=== PATIENT | female | born 1985 | race African-American/Black ===

== ENCOUNTER → 2016-08-16 | Outpatient (CLI) | payer OTHER ==
--- NOTE | 2016-08-16 17:10 | Diagnostic Imaging Report ---
INDICATION: Size date discrepancy. TECHNIQUE: Multiple real-time grayscale images were obtained over the gravid uterus. COMPARISON: 07/16/2015. FINDINGS: heart rate is 138 beats per minutes. The placenta is anterior. No placenta previa. The amniotic fluid index is 9.7 cm. Biometrical measurements are as follows: Biparietal 9.01 cm, age 36 weeks 4 days. Head circumference 32.38 cm, age 36 weeks 5 days. Abdominal circumference 33.73 cm, age 37 weeks 5 days. Femur length 7.54 cm, age 38 weeks 4 days. Sonographic estimate age: 37 weeks 3 days. Current gestational age by provided OTILIA of 09/10/2016 is 37 weeks and 3 days. Sonographic estimated date of delivery: 09/03/2016. Estimated Weight: 3256 gm (+/- 475 gm). LMP percentile: 83%. heart rate: 138 beats per minute. number: 1 of 1. IMPRESSION: Live intrauterine . Dictated by: Dictated on workstation # [id number]
== END ==
LOC: RAD 16:15
PROVIDERS: ATTEND Obstetrics & Gynecology
DX: O26.843 Uterine size-date discrepancy, third trimester (principal); Z3A.37 37 weeks gestation of pregnancy
CPT/HCPCS: 76816

== ENCOUNTER 2016-08-29 03:11 | Outpatient (CLI) | payer OTHER ==
[~2016-08-29] VITALS: Ht 170.2 cm; Wt 99.4 kg
[2016-08-29 03:30] VITALS: BP 135/82
[2016-08-29 03:40] VITALS: BP 130/82
[2016-08-29 03:50] LABS: BILIRUBIN,URINE NEGATIVE (NEGATIVE); KETONES,URINE NEGATIVE (NEGATIVE); LEUKOCYTE ESTERASE ,URINE NEGATIVE (NEGATIVE); NITRITE,URINE NEGATIVE (NEGATIVE); PH,URINE 8 (5-9); PROTEIN,URINE NEGATIVE (NEGATIVE); UROBILINOGEN,URINE NORMAL (NORMAL)
[2016-08-29 03:58] LABS: WBC,URINE RARE /HPF
[2016-08-29 04:00] VITALS: BP 122/71
[2016-08-29 04:19] VITALS: BP 120/79
[2016-08-29] MEDS ORDERED: CALCIUM CARBONATE 500 MG (TUMS) TAB.CHEW ONE (04:58)
[2016-08-29] MEDS ORDERED: CALCIUM CARBONATE 500 MG (TUMS) TAB.CHEW PO ONE (05:15)
[2016-08-29] MEDS ORDERED: PREN-53 PO (05:29)
[2016-08-29] MEDS ORDERED: MAGN400C PO (05:29)
[2016-08-29] MEDS ORDERED: IRON1TAB95 PO (05:29)
[2016-08-29] MEDS ORDERED: SERT20OR PO (05:29)
[2016-08-29] MEDS ORDERED: RANI25VI2 IJ (05:29)
--- NOTE | 2016-08-29 07:50 | Diagnostic Imaging Report ---
INDICATION: Decreased variability IMPRESSION: There is a normal biophysical profile with a score of 8 out of 8. The ISMAEL is 7 cm. Dictated by: Dictated on workstation # [id number]
--- NOTE | 2016-08-30 16:17 | Physician Query-Final Dx ---
GONZALEZ ARAYA 08/30/16 1617: Clinic Account Progress/Dx Physician Query: Please give diagnosis Date of Service Aug 29, 2016 at 03:11 ANGELINE FELDMAN MD 08/31/16 1126: Clinic Account Progress/Dx DIAGNOSIS: Diagnosis Decreased movement GONZALEZ ARAYA Aug 30, 2016 16:17 ANGELINE FELDMAN MD Aug 31, 2016 11:26
== END 2016-08-29 05:42 | disposition home or self-care (01) ==
LOC: WSo 03:11 → LDRP 03:11 → WSo 05:42
PROVIDERS: ATTEND Obstetrics & Gynecology
DX: O36.8130 Decreased fetal movements, third trimester, not applicable or unspecified (principal); Z3A.38 38 weeks gestation of pregnancy
CPT/HCPCS: 76819; 81000; 87088; 99213

== ENCOUNTER 2016-09-01 04:26 | Inpatient (IN) | payer OTHER ==
[2016-09-01] VITALS (42 sets, daily range): BP systolic 111–167; BP diastolic 58–92
[~2016-09-01] VITALS: Ht 170.2 cm; Wt 99.8 kg
[~2016-09-01 04:26] MED LIST: IRON1TAB95 PO; MAGN400C PO; PREN-53 PO; RANI25VI2 IJ; SERT20OR PO
--- OUTSIDE RECORDS SUMMARY | 2016-09-01 04:34 | XMS REPORT ---
Author Author MERCEDES MCKEE Organization eClinicalWorks Address Unknown Phone Unavailable Care Team Providers Care Unit Supervisor Name Role Phone MERCEDES MCKEE CP Unavailable Allergies No Known Allergies Problems Problem Type Condition ICD-9 Code Onset Dates Condition Status Problem Unspecified symptom associated with female genital organs 625.9 Active Assessment Scanty or infrequent menstruation 626.1 Active Problem Screening for malignant neoplasm of the cervix V76.2 Active Problem Dehydration 276.51 Active Problem Screening examination for venereal disease V74.5 Active Problem Urinary tract infection, site not specified 599.0 Active Problem Scanty or infrequent menstruation 626.1 Active Problem Routine general medical examination at health care facility V70.0 Active Problem Acute sinusitis, unspecified 461.9 Active Medications No Known Medications Procedures Procedure Coding System Code Date ASSAY OF TOTAL TESTOSTERONE CPT-4 95169 Oct 25, 2014 ASSAY THYROID STIM HORMONE CPT-4 95126 Oct 25, 2014 ASSAY OF PROLACTIN CPT-4 98326 Oct 25, 2014 ASSAY OF INSULIN CPT-4 68981 Oct 25, 2014 GONADOTROPIN (FSH) CPT-4 46928 Oct 25, 2014 VENIPUNCT, ROUTINE* CPT-4 28872 Oct 25, 2014 Results Name Result Date Reference Range Unit Abnormality Flag PROLACTIN Summary Purpose eClinicalWorks Submission
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
--- OUTSIDE RECORDS SUMMARY | 2016-09-01 04:35 | XMS REPORT ---
Author Author ROXANE FUENTES Organization eClinicalWorks Address Unknown Phone Unavailable Care Team Providers Care Fringe Knotter Name Role Phone ROXANE FUENTES CP Unavailable Allergies, Adverse Reactions, Alerts Substance Reaction Event Type Hydrocodone-Acetaminophen nausea Drug Allergy Problems Problem Type Condition Code Onset Dates Condition Status Assessment Acute pelvic pain, female N94.9 Active Problem Acute pelvic pain, female N94.9 Active Medications Medication Code System Code Instructions Start Date End Date Status Dosage Metformin HCl [facility] [address]-77 1000 MG Orally Once a day Oct 31, 2014 1 tablet with meals One Daily [facility] [address] 27-0.8 MG Orally not defined Procedures Procedure Coding System Code Date Office Visit, Est Pt., Level 3 CPT-4 02698 Jan 02, 2015 Vital Signs Date/Time: Jan 02, 2015 Temperature 98.0 F Weight 212.5 lbs Height 67 in BMI 33.28 Index Blood Pressure Diastolic 65 mmHg Blood Pressure Systolic 110 mmHg Cardiac Monitoring Heart Rate 60 bpm Results No Known Results Summary Purpose eClinicalWorks Submission
--- OUTSIDE RECORDS SUMMARY | 2016-09-01 04:35 | XMS REPORT ---
Author Author ROXANE FUENTES [facility] eClinicalWorks Address Unknown Phone Unavailable Care Team Providers Care Php Mysql Developer Name Role Phone ROXANE FUENTES CP Unavailable Allergies, Adverse Reactions, Alerts Substance Reaction Event Type Hydrocodone-Acetaminophen nausea Drug Allergy Problems Problem Type Condition Code Onset Dates Condition Status Assessment Dysthymic disorder F34.1 Active Problem Acute pelvic pain, female N94.9 Active Medications Medication Code System Code Instructions Start Date End Date Status Dosage One Daily [facility] [address]86 27-0.8 MG Orally not defined Metformin HCl [facility] [address]-46 1000 MG Orally Once a day Oct 31, 2014 1 tablet with meals Fluoxetine HCl [facility] [address]-36 10 mg Orally Once a day Oct 09, 2015 1 capsule in the morning Clomid NDC 0 not defined Procedures Procedure Coding System Code Date Office Visit, Est Pt., Level 4 CPT-4 87915 Oct 09, 2015 Vital Signs Date/Time: Oct 09, 2015 Cardiac Monitoring Heart Rate 82 bpm Weight 188.7 lbs Height 67 in BMI 29.55 Index Blood Pressure Diastolic 78 mmHg Blood Pressure Systolic 119 mmHg Results No Known Results Summary Purpose eClinicalWorks Submission
--- OUTSIDE RECORDS SUMMARY | 2016-09-01 04:35 | XMS REPORT | Continuity of Care Document ---
Author Author [facility] Address Unknown Phone Unavailable Allergies Medications Problems Date Dx Coded Attending Type Code Diagnosis Diagnosed By 11/03/2007 JASON STEINBERG DO V72.31 COLLEGE OR UNIVERSITY DEPARTMENT HEAD EXAM, ROUTINE 11/03/2007 V72.31 COLLEGE OR UNIVERSITY DEPARTMENT HEAD EXAM, ROUTINE 11/03/2007 V72.31 COLLEGE OR UNIVERSITY DEPARTMENT HEAD EXAM, ROUTINE 11/03/2007 V72.31 COLLEGE OR UNIVERSITY DEPARTMENT HEAD EXAM, ROUTINE 11/03/2007 MERCEDES MCKEE APRN V72.31 COLLEGE OR UNIVERSITY DEPARTMENT HEAD EXAM, ROUTINE 11/03/2007 MERCEDES MCKEE APRN V72.31 COLLEGE OR UNIVERSITY DEPARTMENT HEAD EXAM, ROUTINE 11/03/2007 JASON STEINBERG DO V72.31 COLLEGE OR UNIVERSITY DEPARTMENT HEAD EXAM, ROUTINE 01/23/2008 JASON STEINBERG DO V25.49 SURVEILLANCE OF OTHER CONTRACEPTIVE METHOD 01/23/2008 V25.49 SURVEILLANCE OF OTHER CONTRACEPTIVE METHOD 01/23/2008 V25.49 SURVEILLANCE OF OTHER CONTRACEPTIVE METHOD 01/23/2008 V25.49 SURVEILLANCE OF OTHER CONTRACEPTIVE METHOD 01/23/2008 MERCEDES MCKEE APRN V25.49 SURVEILLANCE OF OTHER CONTRACEPTIVE METHOD 01/23/2008 MERCEDES MCKEE APRN V25.49 SURVEILLANCE OF OTHER CONTRACEPTIVE METHOD 01/23/2008 JASON STEINBERG DO V25.49 SURVEILLANCE OF OTHER CONTRACEPTIVE METHOD 02/10/2010 JASON STEINBERG DO 112.1 CANDIDIASIS OF VULVA AND VAGINA 02/10/2010 112.1 CANDIDIASIS OF VULVA AND VAGINA 02/10/2010 112.1 CANDIDIASIS OF VULVA AND VAGINA 02/10/2010 112.1 CANDIDIASIS OF VULVA AND VAGINA 02/10/2010 MERCEDES MCKEE APRN 112.1 CANDIDIASIS OF VULVA AND VAGINA 02/10/2010 MERCEDES MCKEE APRN 112.1 CANDIDIASIS OF VULVA AND VAGINA 02/10/2010 JASON STEINBERG DO 112.1 CANDIDIASIS OF VULVA AND VAGINA 12/10/2011 JASON STEINBERG DO V74.5 STD SCREEN 12/10/2011 JASON STEINBERG DO V76.2 CERVICAL CANCER SCREENING (PAP SMEAR) 12/10/2011 V74.5 STD SCREEN 12/10/2011 V76.2 CERVICAL CANCER SCREENING (PAP SMEAR) 12/10/2011 V74.5 STD SCREEN 12/10/2011 V76.2 CERVICAL CANCER SCREENING (PAP SMEAR) 12/10/2011 V74.5 STD SCREEN 12/10/2011 V76.2 CERVICAL CANCER SCREENING (PAP SMEAR) 12/10/2011 MERCEDES MCKEE APRN A V74.5 STD SCREEN 12/10/2011 RYLEEMERCEDES Carolina APRN A V76.2 CERVICAL CANCER SCREENING (PAP SMEAR) 12/10/2011 RYLEEMERCEDES MEZA APRN A V74.5 STD SCREEN 12/10/2011 RYLEEMERCEDES MEZA APRN A V76.2 CERVICAL CANCER SCREENING (PAP SMEAR) 12/10/2011 JASON STEINBERG DO V74.5 STD SCREEN 12/10/2011 JASON STEINBERG DO V76.2 CERVICAL CANCER SCREENING (PAP SMEAR) 03/17/2012 JASON STEINBERG DO V70.0 ROUTINE GENERAL MEDICAL EXAMINATION AT A HEALTH CARE FACILITY 03/17/2012 V70.0 ROUTINE GENERAL MEDICAL EXAMINATION AT A HEALTH CARE FACILITY 03/17/2012 V70.0 ROUTINE GENERAL MEDICAL EXAMINATION AT A HEALTH CARE FACILITY 03/17/2012 V70.0 ROUTINE GENERAL MEDICAL EXAMINATION AT A HEALTH CARE FACILITY 03/17/2012 MERCEDES MCKEE APRN A V70.0 ROUTINE GENERAL MEDICAL EXAMINATION AT A HEALTH CARE FACILITY 03/17/2012 MERCEDES MCKEE APRN A V70.0 ROUTINE GENERAL MEDICAL EXAMINATION AT A HEALTH CARE FACILITY 03/17/2012 JASON STEINBERG DO V70.0 ROUTINE GENERAL MEDICAL EXAMINATION AT A HEALTH CARE FACILITY 05/05/2012 V05.3 [place] DX 05/05/2012 V06.1 TDAP DX 05/05/2012 V05.3 [place] DX 05/05/2012 V06.1 TDAP DX 05/05/2012 V05.3 [place] DX 05/05/2012 V06.1 TDAP DX 05/05/2012 MERCEDES MCKEE APRN V05.3 [place] DX 05/05/2012 MERCEDES MCKEE APRN A V06.1 TDAP DX 05/05/2012 MIGUEL MCKEE APRNIDI A V05.3 [place] DX 05/05/2012 RYLEE MORALESNMIGUELMERCEDES A V06.1 TDAP DX 05/05/2012 JASON STEINBERG DO V05.3 [place] DX 05/05/2012 JASON STEINBERG DO V06.1 TDAP DX 05/17/2012 V03.1 NEED FOR PROPHYLACTIC VACCINATION WITH TYPHOID-PARATYPHOID ( TAB) VACCINE 05/17/2012 V06.4 MMR DX 05/17/2012 V03.1 NEED FOR PROPHYLACTIC VACCINATION WITH TYPHOID-PARATYPHOID ( TAB) VACCINE 05/17/2012 V06.4 MMR DX 05/17/2012 MIGUEL MCKEE APRNIDI A V03.1 NEED FOR PROPHYLACTIC VACCINATION WITH TYPHOID-PARATYPHOID (TAB) VACCINE 05/17/2012 RYLEE MORALESCaity MERCEDES A V06.4 MMR DX 05/17/2012 RYLEE MORALESCaity MERCEDES A V03.1 NEED FOR PROPHYLACTIC VACCINATION WITH TYPHOID-PARATYPHOID (TAB) VACCINE 05/17/2012 RYLEE COST ENGINEER, MERCEDES A V06.4 MMR DX 05/17/2012 JASON STEINBERG DO V03.1 NEED FOR PROPHYLACTIC VACCINATION WITH TYPHOID -PARATYPHOID (TAB) VACCINE 05/17/2012 JASON STEINBERG DO V06.4 MMR DX 07/17/2012 461.9 SINUSITIS ACUTE 07/17/2012 RYLEEMERCEDES [place] APRN A 461.9 SINUSITIS ACUTE 07/17/2012 MERCEDES MCKEE APRN A 461.9 SINUSITIS ACUTE 07/17/2012 JASON STEINBERG DO 461.9 SINUSITIS ACUTE 03/29/2013 RYLEEMERCEDES [place] APRN A 599.0 URINARY TRACT INFECTION 03/29/2013 MERCEDES MCKEE APRN A 599.0 URINARY TRACT INFECTION 03/29/2013 JASON STEINBERG DO 599.0 URINARY TRACT INFECTION 11/28/2013 RYLEEMERCEDES [place] APRN A 625.9 PELVIC PAIN 11/28/2013 MERCEDES MCKEE APRN A 626.1 SCANTY OR INFREQUENT MENSTRUATION 11/28/2013 MERCEDES MCKEE APRN A V72.62 LAB SCREENING- GENERAL PHYSICAL 11/28/2013 JASON STEINBERG DO Radha 625.9 PELVIC PAIN 11/28/2013 JASON STEINBERG DO Radha 626.1 SCANTY OR INFREQUENT MENSTRUATION 11/28/2013 JASON STEINBERG DO Radha V72.62 LAB SCREENING- GENERAL PHYSICAL 03/12/2014 JASON STEINBERG DO 276.51 DEHYDRATION 12/20/2014 MADL, ROXANE L SUEDING MACHINE TENDER Ot 723.1 01/10/2015 MADL, ROXANE L SUEDING MACHINE TENDER Ot 723.1 01/10/2015 MADL, ROXANE L SUEDING MACHINE TENDER Ot M54.2 02/24/2015 MADL, ROXANE L SUEDING MACHINE TENDER Ot N94.9 03/25/2015 MADL, ROXANE L SUEDING MACHINE TENDER Ot M54.2 CERVICALGIA 03/27/2015 MADL, ROXANE L SUEDING MACHINE TENDER Ot M54.2 CERVICALGIA 04/18/2015 MADL, ROXANE L SUEDING MACHINE TENDER Ot 723.1 04/18/2015 MADL, ROXANE L SUEDING MACHINE TENDER Ot N94.9 04/18/2015 MADL, ROXANE L SUEDING MACHINE TENDER Ot 723.1 04/18/2015 MADL, ROXANE L SUEDING MACHINE TENDER Ot N94.9 07/16/2015 MADL, ROXANE L SUEDING MACHINE TENDER Ot 723.1 CERVICALGIA 07/16/2015 MADL, ROXANE L SUEDING MACHINE TENDER Ot N94.9 UNSP COND ASSOC W FEMALE GENITAL ORGANS 07/16/2015 RAULITO GODDARD DO Ot N97.9 FEMALE INFERTILITY, UNSPECIFIED 07/18/2015 RAULITO GODDARD DO Ot N83.9 NONINFLAMMATORY DISORD OF OVARY, FALLOP 07/18/2015 RAULITO GODDARD DO Ot R79.89 OTHER SPECIFIED ABNORMAL FINDINGS OF BLO Procedures Code [place] [address] ROUTINE VENIPUNCTURE 11/28/2013 14357 GC/CHLAM PROBE (STATE) 11/28/2013 77613 TEST, URINE (IN-HOUSE) 11/28/2013 81899 UA W/ CULTURE IF INDICATED 11/28/2013 00719 TRICHOMONAS (IN-HOUSE) 11/28/2013 [id number] GFR CALC (RESULT ONLY) 11/28/2013 79296 CMP 11/28/2013 53957 LIPID PANEL 11/28 93711 CBC 11/28/2013 07572 TSH 11/29/2013 03479 CULTURE UROGENITAL 12/01/2013 94211 CULTURE URINE 08/2014 84663 UA W/ CULTURE IF INDICATED 03/12/2014 Results Encounters ACCT No. Visit Date/Time Discharge Status Pt. Type Provider Facility Loc./Unit Complaint [id number] 03/12/2014 14:33:00 03/12/2014 23: 59:59 CLS Outpatient JASON STEINBERG DO [id number] 11/28/2013 08:50:00 11/28/2013 23: 59:59 CLS Outpatient MERCEDES MCKEE APRN [id number] 03/29/2013 08:56:00 03/29/2013 23: 59:59 CLS Outpatient MERCEDES MCKEE APRN [id number] 05/17/2012 08:16:00 05/17/2012 23: 59:59 CLS Outpatient [id number] 05/05/2012 13:48:00 05/05/2012 23: 59:59 CLS Outpatient [id number] 03/17/2012 15:26:00 03/17/2012 23: 59:59 CLS Outpatient JASON STEINBERG DO [id number] 07/17/2012 14:11:00 Document Registration [id number] 04/13/2012 12:31:48 RECURRING
--- OUTSIDE RECORDS SUMMARY | 2016-09-01 04:35 | XMS REPORT ---
Author Author ROXANE FUENTES Organization eClinicalWorks Address Unknown Phone Unavailable Care Team Providers Care Millwork Estimator Name Role Phone ROXANE FUENTES CP Unavailable Allergies, Adverse Reactions, Alerts Substance Reaction Event Type Hydrocodone-Acetaminophen nausea Drug Allergy Problems Problem Type Condition Code Onset Dates Condition Status Assessment Low back pain M54.5 Active Problem Unspecified symptom associated with female genital organs 625.9 Active Assessment Neck pain on right side M54.2 Active Problem Screening for malignant neoplasm of [...] Date End Date Status Dosage Metformin HCl [facility] [address]-92 1000 MG Orally Once a day Oct 31, 2014 1 tablet with meals One Daily [facility] [address] 27-0.8 MG Orally not defined Procedures Procedure Coding System Code Date Office Visit, Est Pt., Level 3 CPT-4 60716 Dec 10, 2014 Vital Signs Date/Time: Dec 10, 2014 Temperature 98.7 F Weight 207.4 lbs Height 67 in BMI 32.48 Index Blood Pressure Diastolic 80 mmHg Blood Pressure Systolic 122 mmHg Cardiac Monitoring Heart Rate 80 bpm Results No Known Results Summary Purpose eClinicalWorks Submission
--- OUTSIDE RECORDS SUMMARY | 2016-09-01 04:35 | XMS REPORT ---
Author Author JASON STEINBERG [facility] eClinicalWorks Address Unknown Phone Unavailable Care Team Providers Care Aircraft Structural Fitter Name Role Phone JASON STEINBERG CP Unavailable Allergies No Known Allergies Problems Problem Type Condition ICD-9 Code Onset Dates Condition Status Problem Unspecified symptom associated with female genital organs 625.9 Active Problem Screening for malignant neoplasm of [...] Date End Date Status Dosage Metformin HCl [facility] [address]-87 1000 MG Orally Once a day Oct 31, 2014 1 tablet with meals Results No Known Results Summary Purpose eClinicalWorks Submission
--- OUTSIDE RECORDS SUMMARY | 2016-09-01 04:35 | XMS REPORT ---
Author Author ROXANE FUENTES Organization eClinicalWorks Address Unknown Phone Unavailable Care Team Providers Care Coronary Care Unit Nurse Name Role Phone ROXANE FUENTES CP Unavailable Allergies, Adverse Reactions, Alerts Substance Reaction Event Type Hydrocodone-Acetaminophen nausea Drug Allergy Problems Problem Type Condition Code Onset Dates Condition Status Assessment Dysthymic disorder F34.1 Active Problem Acute pelvic pain, female N94.9 Active Medications Medication Code System Code Instructions Start Date End Date Status Dosage Metformin HCl [facility] [address]-32 1000 MG Orally Once a day Oct 31, 2014 1 tablet with meals One Daily [facility] [address] 27-0.8 MG Orally not defined Fluoxetine HCl [facility] [address]-83 20 MG Orally Once a day 1 capsule in the morning Clomid NDC 0 not defined Ibuprofen [facility] [address]-53 600 MG Orally every 6 hours prn 1 tablet Procedures Procedure Coding System Code Date Office Visit, Est Pt., Level 3 CPT-4 50816 Oct 30, 2015 Vital Signs Date/Time: Oct 30, 2015 Cardiac Monitoring Heart Rate 68 bpm Weight 188.9 lbs Height 67 in BMI 29.58 Index Blood Pressure Diastolic 72 mmHg Blood Pressure Systolic 112 mmHg Results No Known Results Summary Purpose eClinicalWorks Submission
--- OUTSIDE RECORDS SUMMARY | 2016-09-01 04:35 | XMS REPORT ---
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 Active Problem Unspecified symptom associated with female [...] Date End Date Status Dosage One Daily [facility] [address] 27-0.8 MG Orally not defined Procedures Procedure Coding System Code Date Office Visit, Est Pt., Level 3 CPT-4 85434 Oct 24, 2014 URINE TEST CPT-4 22189 Oct 24, 2014 Vital Signs Date/Time: Oct 24, 2014 Temperature 97.9 F Weight 210.2 lbs Height 67 in BMI 32.92 Index Blood Pressure Diastolic 78 mmHg Blood Pressure Systolic 128 mmHg Cardiac Monitoring Heart Rate 88 bpm Results Name Result Date Reference Range Unit Abnormality Flag TEST, URINE (IN HOUSE) Summary Purpose eClinicalWorks Submission
[2016-09-01] MEDS: D5 LR IV SOLUTION 1,000 ML IV SCH ×2 (04:45→12:48)
[2016-09-01] MEDS ORDERED: D5 LR IV SOLUTION 1,000 ML IV ONE (04:46)
[2016-09-01] MEDS ORDERED: OXYTOCIN/NORMAL SALINE 500 ML IV ONE (04:46)
[2016-09-01] MEDS ORDERED: MINERAL OIL CONCENTRATE 99.9% 15 ML UDC TOP PRN (05:00)
[2016-09-01] MEDS ORDERED: BUTORPHANOL INJ 2 MG/ML (STADOL) VIAL ONE (05:01)
[2016-09-01] MEDS ORDERED: LACTATED RINGERS 1,000 ML IV ONE ×2 (05:03→09:21)
[2016-09-01] MEDS ORDERED: BUTORPHANOL INJ 2 MG/ML (STADOL) VIAL IV ONE (05:15)
--- NOTE | 2016-09-01 05:24 | History & Physical-OB ---
OB - Chief Complaint & HPI Date/Time Date of Admission: Date of Admission: Sep 01, 2016 at 04:27 Time Seen by Provider: 05:00 Chief Complaint/History OB-Reason for Admission/Chief: Onset of Labor Hx : 1 Hx Para: 0 Expected Date of Delivery: Sep 10, 2016 Gestational Age in Weeks: 38 Gestational Age in Days: 5 Other reason for admission: Patient was scheduled for induction of labor due to worsening blood pressures ( gestational hypertension), however, she presented in labor at 0430. States contractions were getting stronger at home. was out of town for work so she tried to labor at home until he was available. I was called and told that the cervix had an anterior lip. Unknown ROM but no bag is felt. Patient states she doesn't think she has been leaking but has had increase in blood show at home. She was 3.5 cm in the office on Tuesday and 80% effaced. well being is reassuring, but with few accelerations. She had been seen on labor and delivery on 08/29/16 for decreased movement and her strip was initially non reactive. BPP was ordered and while waiting the strip became reactive. The ISMAEL was 7 and BPP 8/8 so she was sent home. In the office yesterday, strip also initially nonreactive but became reactive after 20 minutes. She has had no headache or blurred vision. History of Labs A+/-, VDRL NR, HIV- HBsAg -, Hep C - GBS - Other Patient has PCOS and was on metformin prior to . She also was on Prozac prior to . She weaned this off in the first trimester and stopped the Metformin at some point (she had been asked to continue but did not) . Glucola, however, was negative. She had been on Clomid for 6 cycles prior to conception but conceived off Clomid. has been uncomplicated. She has measured S>D and sono on 08/16/16 showed fetus in the 80%ile and ISMAEL 9. AC was measuring at least 1 week ahead. Allergies and Home Medications Allergies Coded Allergies: hydrocodone (Verified Allergy, Mild, 08/29/16) Home Medications Iron,Carbonyl/Vit C/Vit B12/FA 1 Each Tablet, 1 EACH PO DAILY, (Reported) Magnesium Oxide 400 Mg Capsule, 400 MG PO DAILY, (Reported) Sqp068/Iron Fumarate/FA/Dss 1 Each Tablet, 1 EACH PO DAILY, (Reported) Ranitidine HCl 25 Mg/1 Ml Vial, 25 MG IJ DAILY, (Reported) Sertraline HCl 20 Mg/1 Ml Oral.conc, 20 MG PO DAILY, (Reported) OB - History Hx of Present Ultrasounds: Normal mid trimester US, Abnormal US findings (80%ile growth) Obstetrical Complications: None Medical Complications: None Obstetrical History Hx : 1 Hx Para: 0 Hx # Term Pregnancies: 0 Hx # Pregnancies: 0 Number of Living Children: 0 Hx Termination: No Patient Past Medical History PCOS Social History/Family History HIV/AIDS: No Recent Infectious Disease Expo: No Sexually Transmitted Disease: No Alcohol Use: Denies Use Recreational Drug Use: No Smoking Cessation: Unknown if ever smoked Immunizations Hepatitis A: No Hepatitis B: Yes Tetanus Booster (TDap): Unknown Rubella: immune RPR/VDRL: Negative GBS Status: Negative HBsAG: Negative OB - Admission Exam Physical Exam Date Seen by Provider: Sep 01, 2016 Time Seen by Provider: 05:00 Heart: Rhythm Normal Lungs: Clear, Equal Abdomen: Gravid Extremities: Normal Reflexes: Normal Cervical Dilatation: 6cm (Patient difficult to examine. On my exam, 6 cm 90- 100% effaced, -1 station, bloody show. Cannot feel bag, AROM attempted but likely ROM at some point.) Effacement: 100% Station: -1 Membranes: Ruptured Amniotic Fluid: Other (unknonw but likely clear) Heart Rate: 140's Accelerations: Accelerations Present Decelerations: No Decelerations Short Term Variability: Present Custodial Variability: Average (6-25) Contractions on Admission: < 5 Minutes Apart Date/Time Contractions Began;: 0130 OB - Assessment/Plan/Diagnosis Assessment Assessment: active labor Plan Plan: Expectant Management Other Plan As she is not as dilated as originally thought, will attempt to obtain an epidural. Stadol 1 mg given for pain until that time. Anticipate Peds - [place]. RAULITO GODDARD DO Sep 01, 2016 05:24
[2016-09-01 05:26] LABS: BASOPHILS % (AUTO) 0 % (0-10); EOSINOPHILS # (AUTO) 0.2 10^3/uL (0.0-0.3); EOSINOPHILS % (AUTO) 2 % (0-10); LYMPHOCYTES # (AUTO) 1.9 X 10^3 (1.0-4.0); LYMPHOCYTES % (AUTO) 16 % (12-44); MEAN CORPUSCULAR HEMOGLOBIN 28 PG (25-34); MEAN CORPUSCULAR HGB CONC 34 G/DL (32-36); MEAN CORPUSCULAR VOLUME 84 FL (80-99); MEAN PLATELET VOLUME 12.4 FL (7.4-10.4); MONOCYTES # (AUTO) 0.9 X 10^3 (0.0-1.0); MONOCYTES % (AUTO) 7 % (0-12); NEUTROPHILS % (AUTO) 75 % (42-75); PLATELET COUNT 201 10^3/uL (130-400); RED BLOOD COUNT 4.44 10^6/uL (4.35-5.85); RED CELL DISTRIBUTION WIDTH 13.8 % (10.0-14.5)
[2016-09-01] MEDS ORDERED: SUFENTA 0.6MCG/ML BUPIVA 0.125 100 ML ONE (05:27)
[2016-09-01] MEDS: CATHETER FLUSH 10 ML SYR IV SCH ×2 (06:02→20:12)
[2016-09-01] MEDS ORDERED: fentaNYL INJECTION 100 MCG/2 ML AMP ONE (06:34)
[2016-09-01] MEDS ORDERED: LIDOCAINE/EPI 1%-1:200,000 (XYLOCAINE) 30 ML VIAL ONE (08:48)
[2016-09-01] MEDS ORDERED: OXYTOCIN/NORMAL SALINE 500 ML IV SCH ×2 (09:02→15:07)
[2016-09-01] MEDS ORDERED: EPIDURAL (SUFENTA 0.6MCG/ML BUPIVA 0.125%) 100 ML BAG EPI SCH (09:30)
[2016-09-01] MEDS ORDERED: NALOXONE 0.4 MG/ML 1 ML (NARCAN) VIAL IV PRN (09:30)
[2016-09-01] MEDS ORDERED: ONDANSETRON 4 MG/2 ML (SDV) Z0FRAN IV PRN (09:30)
--- NOTE | 2016-09-01 14:53 | OB Labor & Delivery Record ---
Vag Delivery Note Vag Delivery Note Date of Delivery: 09/01/16 1305 Preoperative Diagnosis: Mj Evans is a 30 /Para 1 / 0, Gestational Age 38 weeks who presented in labor at term. Was scheduled to be induced this am for gestational hypertension Postoperative Diagnosis: Same Surgeon: RAULITO GODDARD Anesthesia: epidural Delivery Type: vaginal Findings: [] Viable female infant, apgars 8/9, weight pending Lacerations: 2nd degree Intact placenta with 3 vessel cord. No nuchal cord, body cord or shoulder dystocia Estimated Blood Loss: 150 ml Complications: None Condition: Stable Description of Procedure: The patient is a 30 /Para 1 / 0,Gestational Age 38 weeks who presented in labor at term. Was scheduled to be induced this am for gestational hypertension . She was admitted and informed consent was obtained. Her labor course was remarkable for epidural placement. She progressed to complete dilatation and began to push. She was then set up for delivery. The infant's head was delivered atraumatically in the OA position. The shoulders and remainder of the infant's body were then delivered without difficulty. Upon delivery, the head was held below the level of the perineum and the mouth and nares were bulb suctioned. The cord was doubly clamped and cut and the was handed off to the pediatric staff. An intact placenta with 3-vessel cord delivered via Jorge and there was found to be minimal bleeding.~ Vigorous fundal massage was performed and the fundus was found to be firm. IV oxytocin was given. Examination of the vagina and perineum revealed a2nd degree laceration repaired in the usual fashion with 3-0 vicryl suture. Following the repair, sponge, instrument and needle counts were correct. Mom and baby were both in stable condition in the labor suite. Vitals - Labs Vital Signs - I&O Vital Signs Date Time Temp Pulse Resp B/P (MAP) Pulse Ox O2 Delivery O2 Flow Rate FiO2 09/01/16 10:45 98.9 81 18 126/74 Room Air 09/01/16 10:30 81 18 121/89 Room Air 09/01/16 10:15 93 18 119/63 Room Air 09/01/16 10:00 76 18 122/77 Room Air 09/01/16 09:45 76 18 122/60 Room Air 09/01/16 09:30 120/92 Room Air 6/28/17 09:15 18 119/77 Room Air 09/01/16 09:00 98.1 97 18 129/86 09/01/16 08:45 86 167/85 09/01/16 08:30 09/01/16 08:15 74 18 114/75 98 09/01/16 08:00 73 18 119/76 98 09/01/16 07:45 97.8 77 18 129/80 98 09/01/16 07:30 73 18 99 09/01/16 07:15 73 16 99 09/01/16 07:00 78 16 123/81 99 09/01/16 06:43 96.8 82 18 123/61 99 09/01/16 06:40 80 18 125/63 99 Room Air 09/01/16 06:37 88 18 134/67 98 Room Air 09/01/16 06:33 80 18 129/70 97 Room Air 09/01/16 06:30 96 18 135/82 97 Room Air 09/01/16 06:28 142 18 125/72 98 Room Air 09/01/16 06:25 93 18 132/72 99 Room Air 09/01/16 06:21 77 18 120/59 99 Room Air 09/01/16 06:17 85 18 124/65 99 Room Air 09/01/16 06:12 82 18 122/71 100 Room Air 09/01/16 06:02 110 18 136/66 98 Room Air 09/01/16 04:55 97.2 83 18 111/71 Room Air Labs Laboratory Tests 09/01/16 04:45: White Blood Count 12.0H, Red Blood Count 4.44, Hemoglobin 12.6, Hematocrit 37, Mean Corpuscular Volume 84, Mean Corpuscular Hemoglobin 28, Mean Corpuscular Hemoglobin Concent 34, Red Cell Distribution Width 13.8, Platelet Count 201, Mean Platelet Volume 12.4H, Neutrophils (%) (Auto) 75, Lymphocytes (%) (Auto) 16 , Monocytes (%) (Auto) 7, Eosinophils (%) (Auto) 2, Basophils (%) (Auto) 0, Neutrophils # (Auto) 9.0H, Lymphocytes # (Auto) 1.9, Monocytes # (Auto) 0.9, Eosinophils # (Auto) 0.2, Basophils # (Auto) 0.0 RAULITO GODDARD DO Sep 01, 2016 14:53
[2016-09-01] MEDS ORDERED: TETANUS,DIPTH,PERTUSS P/F (BOOSTRIX) 0.5 ML VIAL IM ONE (15:15)
[2016-09-01] MEDS ORDERED: WITCH HAZEL(TUCKS) 40 EA JAR TOP PRN (15:15)
[2016-09-01] MEDS ORDERED: MEASLES,MUMPS,RUBELLA 1 EA INJ SQ ONE (15:15)
[2016-09-01] MEDS ORDERED: BENZOCAINE/MENTHOL (DERMOPLAST) 56 ML CAN TP PRN (15:15)
[2016-09-01] MEDS ORDERED: PATIENT MAY USE OWN MED,SINGLE MED PO SCH (15:45)
[2016-09-01] MEDS ORDERED: SERT25TA5 PO (15:54)
[2016-09-01] MEDS: IBUPROFEN 600 MG (MOTRIN) TAB PO SCH ×2 (16:04→21:58)
[2016-09-01] MEDS: ACETAMINOPHEN 500 MG TAB (TYLENOL) PO PRN (20:12)
[2016-09-02] VITALS: BP 97/66
[2016-09-02] MEDS: D5 LR IV SOLUTION 1,000 ML IV SCH (01:04)
[2016-09-02] MEDS: CATHETER FLUSH 10 ML SYR IV SCH (01:05)
[2016-09-02] MEDS: IBUPROFEN 600 MG (MOTRIN) TAB PO SCH ×3 (04:24→17:30)
[2016-09-02 05:05] VITALS: BP 101/72
[2016-09-02 06:54] LABS: BASOPHILS % (AUTO) 0 % (0-10); EOSINOPHILS # (AUTO) 0.2 10^3/uL (0.0-0.3); EOSINOPHILS % (AUTO) 1 % (0-10); LYMPHOCYTES # (AUTO) 1.7 X 10^3 (1.0-4.0); LYMPHOCYTES % (AUTO) 14 % (12-44); MEAN CORPUSCULAR HEMOGLOBIN 29 PG (25-34); MEAN CORPUSCULAR HGB CONC 35 G/DL (32-36); MEAN CORPUSCULAR VOLUME 84 FL (80-99); MEAN PLATELET VOLUME 11.2 FL (7.4-10.4); MONOCYTES # (AUTO) 0.9 X 10^3 (0.0-1.0); MONOCYTES % (AUTO) 7 % (0-12); NEUTROPHILS # (AUTO) 9.4 X 10^3 (1.8-7.8); NEUTROPHILS % (AUTO) 77 % (42-75); PLATELET COUNT 153 10^3/uL (130-400); RED BLOOD COUNT 3.85 10^6/uL (4.35-5.85); RED CELL DISTRIBUTION WIDTH 13.5 % (10.0-14.5); WHITE BLOOD COUNT 12.2 10^3/uL (4.3-11.0)
[2016-09-02 08:40] VITALS: BP 96/70
[2016-09-02] MEDS: FERROUS SULF 325 MG (IRON) TAB PO SCH (08:43)
[2016-09-02] MEDS: PRENATAL VITAMIN 1 EA TAB PO SCH (08:43)
[2016-09-02] MEDS ORDERED: SERTRALINE HCL 20 MG PO SCH (09:00)
--- NOTE | 2016-09-02 11:43 | Progress Note-Standard ---
Standard Progress Note Progress Notes/Assess & Plan Date Seen by Provider: Sep 02, 2016 Time Seen by Provider: 11:40 Progress/Assessment & Plan Patient is PPD 1 NVD. Reports significant cramping and moderate to heavylochia. She is . Ambulating and voiding freely. Vital Sign - Last 24 Hours 09/01/16 09/01/16 09/01/16 09/01/16 11:45 12:00 12:15 12:30 Pulse 87 86 86 84 Resp 18 18 18 18 B/P (MAP) 125/78 113/74 113/74 133/74 O2 Delivery Room Air Room Air Room Air Room Air 09/01/16 09/01/16 09/01/16 09/01/16 12:45 12:55 13:04 13:22 Temp 100.2 Pulse 105 100 100 Resp 18 18 18 B/P (MAP) 136/64 131/58 128/73 O2 Delivery Room Air Room Air Room Air Room Air 09/01/16 09/01/16 09/01/16 09/01/16 13:38 13:53 14:07 14:23 Temp 99.2 Pulse 97 98 106 96 Resp 18 18 18 18 B/P (MAP) 116/69 114/64 115/67 134/86 O2 Delivery Room Air Room Air Room Air Room Air 09/01/16 09/01/16 09/01/16 09/01/16 14:38 14:52 15:07 20:15 Temp 98.3 Pulse 91 83 82 82 Resp 18 18 18 16 B/P (MAP) 117/71 119/72 122/76 114/70 Pulse Ox 98 O2 Delivery Room Air Room Air Room Air Room Air 09/02/16 09/02/16 09/02/16 00:00 05:05 08:40 Temp 98.0 97.2 97.3 Pulse 72 76 71 Resp 16 18 18 B/P (MAP) 97/66 101/72 96/70 Pulse Ox 98 98 98 O2 Delivery Room Air Room Air Room Air Intake and Output 09/01/16 09/01/16 09/02/16 15:00 23:00 07:00 Intake Total 1000 ml Balance 1000 ml Laboratory Tests Test 09/02/16 06:47 Range/Units White Blood Count 12.2 H 4.3-11.0 10^3/uL Red Blood Count 3.85 L 4.35-5.85 10^6/uL Hemoglobin 11.2 L 11.5-16.0 G/DL Hematocrit 32 L 35-52 % Mean Corpuscular Volume 84 80-99 FL Mean Corpuscular Hemoglobin 29 25-34 PG Mean Corpuscular Hemoglobin Concent 35 32-36 G/DL Red Cell Distribution Width 13.5 10.0-14.5 % Platelet Count 153 130-400 10^3/uL Mean Platelet Volume 11.2 H 7.4-10.4 FL Neutrophils (%) (Auto) 77 H 42-75 % Lymphocytes (%) (Auto) 14 12-44 % Monocytes (%) (Auto) 7 0-12 % Eosinophils (%) (Auto) 1 0-10 % Basophils (%) (Auto) 0 0-10 % Neutrophils # (Auto) 9.4 H 1.8-7.8 X 10^3 Lymphocytes # (Auto) 1.7 1.0-4.0 X 10^3 Monocytes # (Auto) 0.9 0.0-1.0 X 10^3 Eosinophils # (Auto) 0.2 0.0-0.3 10^3/uL Basophils # (Auto) 0.0 0.0-0.1 10^3/uL Uterine fundus firm and below umbilicus Diagnosis: PPD 1 NVD Uterine cramping/discomfort P: Increase pain med as needed Anticipate dc tomorrow HI MEYER DO Sep 02, 2016 11:43 am
[2016-09-02] MEDS ORDERED: IBUP-1773 PO (11:45)
[2016-09-02] MEDS ORDERED: BENZ56AE2 TP (11:45)
[2016-09-02] MEDS ORDERED: ACET-77 PO (11:45)
--- NOTE | 2016-09-02 11:45 | Discharge Inst-Women's Service ---
Discharge Inst-Women's Serv Depart Medication/Instructions New, Converted or Re-Newed RX: RX on Chart Consults/Follow Up Additional Follow Up: Yes Orders/Referrals Dr. Benson in 6 weeks Activity Activity: Activity as Tolerated Driving Instructions: No Driving for 1 Week NO SMOKING: NO SMOKING Nothing Inside Vagina: No Douching, No [place], No Tampons Diet Discharge Diet: No Restrictions Symptoms to Report to : Bleeding Excessive, Pain Increased, Fever Over 101 Degrees F, Vaginal Bleeding Increase, Questions/Concerns Skin/Wound Care Bathing Instructions: Shower (x 3 weeks) HI MEYER DO Sep 02, 2016 11:45 am
[2016-09-02 14:35] VITALS: BP 122/89
[2016-09-02] MEDS: ACETAMINOPHEN 500 MG TAB (TYLENOL) PO PRN (15:00)
[2016-09-02 20:10] VITALS: BP 111/74
[2016-09-02] MEDS: APAP 300 MG/CODEINE 30 MG (TYLENOL #3) TAB PO PRN (20:13)
[2016-09-03] MEDS: IBUPROFEN 600 MG (MOTRIN) TAB PO SCH ×3 (00:04→12:01)
[2016-09-03] MEDS: APAP 300 MG/CODEINE 30 MG (TYLENOL #3) TAB PO PRN ×3 (00:21→10:56)
[2016-09-03 05:00] VITALS: BP 115/72
[2016-09-03] MEDS ORDERED: ACET1TAB43 PO (09:57)
--- NOTE | 2016-09-03 09:58 | Progress Note-Standard ---
Standard Progress Note Progress Notes/Assess & Plan Date Seen by Provider: Sep 03, 2016 Time Seen by Provider: 09:35 Progress/Assessment & Plan Patient is PPD 1 NVD. Reports doing much better today since starting t3. She is . Ambulating and voiding freely. Vital Sign - Last 24 Hours 09/02/16 09/02/16 09/03/16 14:35 20:10 05:00 Temp 98.9 97.4 97.2 Pulse 95 72 72 Resp 18 16 16 B/P (MAP) 122/89 111/74 115/72 Pulse Ox 99 98 O2 Delivery Room Air Room Air Room Air Uterine fundus firm and below umbilicus Diagnosis: PPD 2 NVD Uterine cramping/discomfort improved P: Anticipate dc HI Moreno DO Sep 03, 2016 9:58 am
[2016-09-03 10:55] VITALS: BP 141/90
[2016-09-03] MEDS: FERROUS SULF 325 MG (IRON) TAB PO SCH (10:56)
[2016-09-03] MEDS: PRENATAL VITAMIN 1 EA TAB PO SCH (10:56)
[2016-09-03 12:38] VITALS: BP 128/85
[2016-09-03] MEDS ORDERED: TETANUS,DIPTH,PERTUSS P/F (BOOSTRIX) 0.5 ML VIAL IM ONE (16:25)
== END 2016-09-03 17:10 | disposition home or self-care (01) | DRG 775 ==
LOC: WSo 04:26 → LDRP 04:27 → 3RD 09-03 10:09 → LDRP 09-03 10:09
PROVIDERS: ADMIT Obstetrics & Gynecology; ATTEND Obstetrics & Gynecology
PROC: 10E0XZZ Delivery of Products of Conception, External Approach (ICD-10-PCS; principal; 2016-09-01)
PROC: 0KQM0ZZ Repair Perineum Muscle, Open Approach (ICD-10-PCS; 2016-09-01)
DX: Z37.0 Single live birth; O13.4 Gestational [pregnancy-induced] hypertension without significant proteinuria, complicating childbirth; Z3A.38 38 weeks gestation of pregnancy; Z23 Encounter for immunization; E28.2 Polycystic ovarian syndrome; O70.1 Second degree perineal laceration during delivery; O99.284 Endocrine, nutritional and metabolic diseases complicating childbirth
CPT/HCPCS: 36415; 85025; 86850; 86900; 86901; 90715; 99212

== ENCOUNTER → 2018-06-21 | Outpatient (CLI) | payer OTHER ==
[~2018-06-21] MED LIST changes: +ACET-77 PO; +ACET1TAB43 PO; +BENZ56AE2 TP; +IBUP-1773 PO; +SERT25TA5 PO
--- NOTE | 2018-06-21 13:23 | Diagnostic Imaging Report ---
INDICATION: survey. TECHNIQUE: Multiple real-time grayscale images were obtained over the gravid uterus. COMPARISON: None FINDINGS: There is a single live fetus in a variable presentation. heart rate was recorded at 160 beats per minute. Placenta is posterior. survey demonstrates kidneys, bladder, and stomach to be unremarkable. There is a three-vessel cord with normal insertion. intracranial structures as well as four-chamber heart and spine were somewhat limited due to position. Biometrical measurements are as follows: Biparietal 4.69 cm, age 20 weeks 2 days. Head circumference 17.67 cm, age 20 weeks 2 days. Abdominal circumference 16.51 cm, age 21 weeks 4 days. Femur length 3.57 cm, age 21 weeks 3 days. Sonographic estimate age: 21 weeks 0 days. Sonographic estimated date of delivery: 11/01/2018. Estimated Weight: 411 gm (+/- 60 gm). LMP percentile: 59%. heart rate: 160 beats per minute. number: 1 of 1. IMPRESSION: Single live IUP at 21 weeks 0 days gestational age with an estimated date of confinement sonographically of 11/01/2018. survey was somewhat limited due to position. Followup could be performed. Dictated by: Dictated on workstation # [id number]
== END ==
LOC: RAD 10:03
PROVIDERS: ATTEND Obstetrics & Gynecology
DX: Z36.89 Encounter for other specified antenatal screening (principal); Z3A.21 21 weeks gestation of pregnancy
CPT/HCPCS: 76805

== ENCOUNTER 2018-10-20 11:26 | Observation (INO) | payer OTHER | END 2018-10-20 15:05 | disposition home or self-care (01) | LOC: LDRP 11:26 ==

== ENCOUNTER 2018-10-23 07:10 | Inpatient (IN) | payer OTHER ==
[2018-10-23] VITALS (18 sets, daily range): BP systolic 99–141; BP diastolic 52–86
[~2018-10-23] VITALS: Ht 170.2 cm; Wt 101.6 kg
[~2018-10-23 07:10] MED LIST changes: +FOLI20CA PO
--- NOTE | 2018-10-23 07:10 | NUR ---
KELLIE POMPA presented to unit via AMBULATION from ED, accompanied by AMBULATION, with c/o LABOR. KELLIE POMPA weighed, gowned, voided, and to bed. EFHM and TOCO applied, VS taken. KELLIE POMPA oriented to bed controls, call light, TV, heat, and A/C controls.
[2018-10-23] MEDS ORDERED: OXYTOCIN/NORMAL SALINE 500 ML IV SCH ×2 (08:24→11:07)
[2018-10-23] MEDS ORDERED: D5 LR IV SOLUTION 1,000 ML IV SCH (08:24)
[2018-10-23] MEDS ORDERED: MINERAL OIL CONCENTRATE 99.9% 15 ML UDC TOP PRN (08:30)
--- NOTE | 2018-10-23 08:30 | NUR ---
DR MEYER CALL, NEW ORDERS RECEIVED.
[2018-10-23 09:15] LABS: BASOPHILS % (AUTO) 0 % (0-10); BILIRUBIN,URINE NEGATIVE (NEGATIVE); COLOR,URINE AMBER; EOSINOPHILS # (AUTO) 0.1 10^3/uL (0.0-0.3); EOSINOPHILS % (AUTO) 1 % (0-10); GLUCOSE, URINE (UA) NEGATIVE (NEGATIVE); HEMATOCRIT 39 % (35-52); HEMOGLOBIN 13.3 G/DL (11.5-16.0); KETONES,URINE 3+ (NEGATIVE); LEUKOCYTE ESTERASE ,URINE 1+ (NEGATIVE); LYMPHOCYTES # (AUTO) 1.6 X 10^3 (1.0-4.0); LYMPHOCYTES % (AUTO) 17 % (12-44); MEAN CORPUSCULAR HEMOGLOBIN 29 PG (25-34); MEAN CORPUSCULAR HGB CONC 35 G/DL (32-36); MEAN CORPUSCULAR VOLUME 83 FL (80-99); MEAN PLATELET VOLUME 11.5 FL (7.4-10.4); MONOCYTES # (AUTO) 0.6 X 10^3 (0.0-1.0); MONOCYTES % (AUTO) 6 % (0-12); NEUTROPHILS # (AUTO) 7.5 X 10^3 (1.8-7.8); NEUTROPHILS % (AUTO) 76 % (42-75); NITRITE,URINE NEGATIVE (NEGATIVE); PH,URINE 6.5 (5-9); PLATELET COUNT 195 10^3/uL (130-400); PROTEIN,URINE 1+ (NEGATIVE); RED CELL DISTRIBUTION WIDTH 14.8 % (10.0-14.5); UROBILINOGEN,URINE NORMAL (NORMAL); WHITE BLOOD COUNT 9.9 10^3/uL (4.3-11.0)
[2018-10-23 09:24] LABS: BACTERIA,URINE MODERATE /HPF; CLARITY,URINE SL CLOUDY; SQUAMOUS EPITHELIAL CELL,UR 25-50 /HPF; WBC,URINE 25-50 /HPF
[2018-10-23] MEDS ORDERED: LIDOCAINE/EPI 2% 1:200,00 (XYLOCAINE) 10 ML VIAL ONE ×2 (09:29→10:16)
[2018-10-23] MEDS ORDERED: SUFENTA 0.6MCG/ML BUPIVA 0.125 100 ML ONE (09:29)
--- NOTE | 2018-10-23 09:59 | History & Physical-OB ---
OB - Chief Complaint & HPI Date/Time Date of Admission: Date of Admission: Oct 23, 2018 at 08:21 Date seen by a Provider: Oct 23, 2018 Time Seen by a Provider: 09:40 Chief Complaint/History OB-Reason for Admission/Chief: Onset of Labor Hx : 2 Hx Para: 1 Expected Date of Delivery: Nov 01, 2018 Gestational Age in Weeks: 38 Gestational Age in Days: 5 Admission Nurse Assessment Rev: Yes History of Labs A pos Antibody neg RI RPR RN HIV NR HBsAg NR GC neg GBS neg Allergies and Home Medications Allergies Coded Allergies: hydrocodone (Verified Allergy, Mild, 08/29/16) Home Medications Folic Acid 20 Mg Capsule, 20 MG PO DAILY, (Reported) Iron,Carbonyl/Vit C/Vit B12/FA 1 Each Tablet, 1 EACH PO DAILY, (Reported) Yni958/Iron Fumarate/FA/Dss 1 Each Tablet, 1 EACH PO DAILY, (Reported) Patient Home Medication List Home Medication List Reviewed: Yes OB - History Hx of Present Care: Yes Ultrasounds: Normal mid trimester US Obstetrical Complications: None Medical Complications: None Obstetrical History Hx Termination: No Patient Past Medical History PCOS Social History/Family History HIV/AIDS: No Sexually Transmitted Disease: No Immunizations Hepatitis A: No Hepatitis B: Yes Tetanus Booster (TDap): Unknown OB - Admission Exam Physical Exam HEENT: NCAT Heart: Rhythm Normal Lungs: Clear Abdomen: Gravid Extremities: Normal Reflexes: Normal Cervical Dilatation: 7cm Effacement: 75% Station: -1 Membranes: Ruptured Amniotic Fluid: Clear Heart Rate: 130's Accelerations: Accelerations Present Decelerations: No Decelerations Short Term Variability: Present Mat Sewer Variability: Average (6-25) Contractions on Admission: < 5 Minutes Apart Intensity: Firm Labs Laboratory Tests Test 10/23/18 09:00 Range/Units White Blood Count 9.9 4.3-11.0 10^3/uL Red Blood Count 4.66 4.35-5.85 10^6/uL Hemoglobin 13.3 11.5-16.0 G/DL Hematocrit 39 35-52 % Mean Corpuscular Volume 83 80-99 FL Mean Corpuscular Hemoglobin 29 25-34 PG Mean Corpuscular Hemoglobin Concent 35 32-36 G/DL Red Cell Distribution Width 14.8 H 10.0-14.5 % Platelet Count 195 130-400 10^3/uL Mean Platelet Volume 11.5 H 7.4-10.4 FL Neutrophils (%) (Auto) 76 H 42-75 % Lymphocytes (%) (Auto) 17 12-44 % Monocytes (%) (Auto) 6 0-12 % Eosinophils (%) (Auto) 1 0-10 % Basophils (%) (Auto) 0 0-10 % Neutrophils # (Auto) 7.5 1.8-7.8 X 10^3 Lymphocytes # (Auto) 1.6 1.0-4.0 X 10^3 Monocytes # (Auto) 0.6 0.0-1.0 X 10^3 Eosinophils # (Auto) 0.1 0.0-0.3 10^3/uL Basophils # (Auto) 0.0 0.0-0.1 10^3/uL Urine Color ALCON H Urine Clarity SL CLOUDY Urine pH 6.5 5-9 Urine Specific [place] 1.015 L 1.016-1.022 Urine Protein 1+ H NEGATIVE Urine Glucose (UA) NEGATIVE NEGATIVE Urine Ketones 3+ H NEGATIVE Urine Nitrite NEGATIVE NEGATIVE Urine Bilirubin NEGATIVE NEGATIVE Urine Urobilinogen NORMAL NORMAL MG/DL Urine Leukocyte Esterase 1+ H NEGATIVE Urine RBC (Auto) 1+ H NEGATIVE Urine RBC 2-5 H /HPF Urine WBC 25-50 H /HPF Urine Squamous Epithelial Cells 25-50 H /HPF Urine Crystals NONE /LPF Urine Bacteria MODERATE H /HPF Urine Casts NONE /LPF Urine Mucus NEGATIVE /LPF Urine Culture Indicated YES OB - Assessment/Plan/Diagnosis Assessment Assessment: active labor Admission Dx 33 yo @ 38 weeks Active labor SROM GBS neg Admission Status: Inpatient Order (span 2 midnights) Reason for Inpatient Admission: Active labor Term Plan Plan: Expectant Management HI MEYER DO Oct 23, 2018 09:58
[2018-10-23] MEDS: LIDOCAINE/EPI 1%-1:200,000 (XYLOCAINE) 10 ML VIAL INJ PRN ×2 (10:05→10:15)
[2018-10-23] MEDS ORDERED: HYDROmorphone 2 MG/ML VIAL (DILAUDID) ONE (10:07)
[2018-10-23] MEDS ORDERED: BENZOCAINE/MENTHOL (DERMOPLAST) 56 ML CAN TP ONE (10:50)
[2018-10-23] MEDS ORDERED: IBUPROFEN 600 MG (MOTRIN) TAB PO ONE (10:50)
[2018-10-23] MEDS: IBUPROFEN 600 MG (MOTRIN) TAB PO SCH ×2 (11:10→16:35)
--- NOTE | 2018-10-23 11:13 | OB Labor & Delivery Record ---
L&D History Date of Service Date of Service: Oct 23, 2018 History Expected Date of Delivery: Nov 01, 2018 Gestational Age in Weeks: 38 Hx : 2 Hx Para: 1 Complications Events: Routine care Operative Indications (Cesarea: N/A-Vaginal Delivery Intrapartal Events: None L&D Stage1 Stage One Onset of Labor - Date: Oct 23, 2018 Monitors and Tracing Monitor Mode: External Monitor Accelerations: Uniform Monitor Decelerations: None Station: -1 [employer] Mechanic Variability: Average (6-10) Short Term Variability: Present Presentation: Vertex Rupture of Membranes Spontaneous Ruture of Membrane: Yes Amniotic Membrane Rupture Time: 06:00 Amniotic Membrane Fluid Desc.: Clear Vaginal Bleeding Description: Normal Show Progress/Notes Patient progressed rapidly, had asked for epidural but was complete and +1 station at time of anesthesia arrival. L&D Stage2 Stage Two Stage II Date: Oct 23, 2018 Monitors and Tracing Monitor Mode: External Monitor Accelerations: Uniform Monitor Decelerations: Variable [employer] Mechanic Variability: Average (6-10) Short Term Variability: Present Position: Right Occiput Anterior Presentation: Vertex Cord Descript/Complications Cord Vessel Description: 3 Vessels Delivery Type Infant Delivery Method: Spontaneous Vaginal Anterior Shoulder: Left Episiotomy/Perineal Laceration Laceraction(s)/Extensions: Yes Episiotomy Description: Periurethral Extnsion/lac Degree (describe repair) there was a right labial complete avulsion at the clitoral dominique transition from the right labia, extending internally to periurethra. Repaired using 3-0 rapide vicryl suture. Left tiara urethral also noted and repaired with same suture Condition of Infant Delivery 1 minute Comment: 8 5 minute Comment: 9 Notes Live male infant weight 6lbs 15oz Condition of Infant Condition of : Living Exam: No Observed Abnormalities Resuscitation Resuscitation: N/A - Spontaneous Resp L&D Stage3 Stage Three Stage III Date: Oct 23, 2018 Pictocin Pitocin Administration Comment: 30 mu wide open at delivery of placenta Placenta Delivery Placenta Delivery: Spontaneous Delivery Summary Summary Estimated blood loss (mL): 350 Attending at delivery: Hi Meyer DO Condition of Delivery Examined: Cervix Examined, Uterus Explored Post Hemorrhage: No Condition of Mother stable Condition of (s) stable HI MEYER DO Oct 23, 2018 11:13
[2018-10-23] MEDS ORDERED: DIBUCAINE (NUPERCAINAL) 1% OINT 30 GM TOP PRN (11:15)
[2018-10-23] MEDS ORDERED: TETANUS,DIPTH,PERTUSS P/F (BOOSTRIX) 0.5 ML VIAL IM ONE (11:15)
[2018-10-23] MEDS ORDERED: WITCH HAZEL(TUCKS) 40 EA JAR TOP PRN (11:15)
[2018-10-23] MEDS ORDERED: MEASLES,MUMPS,RUBELLA 1 EA INJ SQ ONE (11:15)
[2018-10-23] MEDS ORDERED: BENZOCAINE/MENTHOL (DERMOPLAST) 56 ML CAN TP PRN (11:15)
--- NOTE | 2018-10-23 12:15 | NUR ---
REPORT TO HUSAM DUGAN.
--- NOTE | 2018-10-23 13:15 | NUR ---
FFU/2, light rubra lochia noted, no clots expressed. Pericare performed. Pt assisted to sitting position at side of bed and then assisted to wheelchair. Pt denies urge to void at this time. Pt wheeled to PP room 309 accompanied by RN, IdaniaO., infant with all personal belongings. Pt assisted back to bed in new room. Pt and family oriented to room and call light. packet and room service explained. Fresh ice water provided per pt request. Pt denies further needs or concerns at this time.
[2018-10-23] MEDS ORDERED: CATHETER FLUSH 10 ML SYR IV SCH (14:00)
[2018-10-23] MEDS ORDERED: ACETAMINOPHEN 500 MG TAB (TYLENOL) ONE (20:36)
[2018-10-23] MEDS: ACETAMINOPHEN 500 MG TAB (TYLENOL) PO SCH (20:44)
[2018-10-23] MEDS: DOCUSATE SODIUM 100 MG (COLACE) CAP PO SCH (20:44)
[2018-10-24 00:13] VITALS: BP 107/73
[2018-10-24] MEDS: IBUPROFEN 600 MG (MOTRIN) TAB PO SCH ×4 (00:13→21:04)
[2018-10-24] MEDS: ACETAMINOPHEN 500 MG TAB (TYLENOL) PO SCH ×4 (01:59→21:04)
[2018-10-24 04:00] VITALS: BP 97/65
[2018-10-24] MEDS: CATHETER FLUSH 10 ML SYR IV SCH (04:28)
[2018-10-24 05:52] LABS: BASOPHILS % (AUTO) 0 % (0-10); EOSINOPHILS # (AUTO) 0.1 10^3/uL (0.0-0.3); EOSINOPHILS % (AUTO) 1 % (0-10); HEMATOCRIT 32 % (35-52); HEMOGLOBIN 10.9 G/DL (11.5-16.0); LYMPHOCYTES # (AUTO) 2.3 X 10^3 (1.0-4.0); LYMPHOCYTES % (AUTO) 26 % (12-44); MEAN CORPUSCULAR HEMOGLOBIN 29 PG (25-34); MEAN CORPUSCULAR HGB CONC 34 G/DL (32-36); MEAN CORPUSCULAR VOLUME 84 FL (80-99); MEAN PLATELET VOLUME 11.4 FL (7.4-10.4); MONOCYTES # (AUTO) 0.7 X 10^3 (0.0-1.0); MONOCYTES % (AUTO) 8 % (0-12); NEUTROPHILS # (AUTO) 5.9 X 10^3 (1.8-7.8); NEUTROPHILS % (AUTO) 65 % (42-75); PLATELET COUNT 171 10^3/uL (130-400); RED CELL DISTRIBUTION WIDTH 14.5 % (10.0-14.5); WHITE BLOOD COUNT 9.1 10^3/uL (4.3-11.0)
[2018-10-24 08:10] VITALS: BP 109/76
--- NOTE | 2018-10-24 08:19 | Postpartum Progress Note ---
Note Note Day # 1 Subjective: Patient is with complaints of vulvar discomfort, but otherwise doing ok. Ambulating, voiding. Tolerating a regular diet without nausea or vomiting. Normal lochia. Pain is well controlled with oral pain medications. Objective: Physical Exam: General - Alert and oriented, no apparent distress Abdomen - Soft, appropriately tender to palpation, non-distended, fundus firm at umbilicus Extremities - no edema, negative Jung's bilaterally Assessment: PPD 1 NVD Acute blood loss anemia Plan: Routine care. Encourage breast feeding. Encourage ambulation. Ferrous sulfate supplementation. Plan for discharge tomorrow Vitals - Labs Vital Signs - I&O Vital Signs Date Time Temp Pulse Resp B/P (MAP) Pulse Ox O2 Delivery O2 Flow Rate FiO2 10/24/18 04:00 97.8 74 18 97/65 (76) 98 Room Air 10/24/18 00:13 97.4 85 18 107/73 (84) 98 Room Air 10/23/18 20:45 97.8 76 16 99/72 (81) 98 Room Air 10/23/18 16:35 97.7 87 16 110/75 (87) 98 Room Air 10/23/18 12:57 98.4 71 20 104/65 (78) Room Air 10/23/18 12:41 61 20 112/56 (74) Room Air 10/23/18 12:28 77 20 104/58 (73) Room Air 10/23/18 12:11 82 20 113/71 (85) Room Air 10/23/18 11:56 67 20 112/68 (83) Room Air 10/23/18 11:41 74 20 105/69 (81) Room Air 10/23/18 11:26 81 20 129/76 (93) Room Air 10/23/18 11:11 84 20 120/64 (82) Room Air 10/23/18 10:57 88 20 117/60 (79) Room Air 10/23/18 10:45 73 20 141/73 (95) Room Air 10/23/18 10:30 96.9 74 20 99/52 (68) Room Air 10/23/18 09:45 99 20 116/54 (74) Room Air 10/23/18 09:15 114 20 123/86 (98) Room Air 10/23/18 08:45 88 20 115/75 (88) Room Air I & O 10/24/18 07:00 Intake Total 1390 ml Balance 1390 ml Labs Laboratory Tests 10/23/18 09:00: White Blood Count 9.9, Red Blood Count 4.66, Hemoglobin 13.3, Hematocrit 39, Mean Corpuscular Volume 83, Mean Corpuscular Hemoglobin 29, Mean Corpuscular Hemoglobin Concent 35, Red Cell Distribution Width 14.8H, Platelet Count 195, Mean Platelet Volume 11.5H, Neutrophils (%) (Auto) 76H, Lymphocytes (%) (Auto) 17, Monocytes (%) (Auto) 6, Eosinophils (%) (Auto) 1, Basophils (%) (Auto) 0, Neutrophils # (Auto) 7.5, Lymphocytes # (Auto) 1.6, Monocytes # (Auto) 0.6, Eosinophils # (Auto) 0.1, Basophils # (Auto) 0.0, Urine Color AMBERH, Urine Clarity SL CLOUDY, Urine pH 6.5, Urine Specific [place] 1.015L, Urine Protein 1+H, Urine Glucose (UA) NEGATIVE, Urine Ketones 3+H, Urine Nitrite NEGATIVE, Urine Bilirubin NEGATIVE, Urine Urobilinogen NORMAL, Urine Leukocyte Esterase 1+H, Urine RBC (Auto) 1+H, Urine RBC 2-5H, Urine WBC 25-50H, Urine Squamous Epithelial Cells 25-50H, Urine Crystals NONE, Urine Bacteria MODERATEH, Urine Casts NONE, Urine Mucus NEGATIVE, Urine Culture Indicated YES 10/24/18 05:30: White Blood Count 9.1, Red Blood Count 3.78L, Hemoglobin 10.9L, Hematocrit 32L, Mean Corpuscular Volume 84, Mean Corpuscular Hemoglobin 29, Mean Corpuscular Hemoglobin Concent 34, Red Cell Distribution Width 14.5, Platelet Count 171, Mean Platelet Volume 11.4H, Neutrophils (%) (Auto) 65, Lymphocytes (%) (Auto) 26, Monocytes (%) (Auto) 8, Eosinophils (%) (Auto) 1, Basophils (%) (Auto) 0, Neutrophils # (Auto) 5.9, Lymphocytes # (Auto) 2.3, Monocytes # (Auto) 0.7, Eosinophils # (Auto) 0.1, Basophils # (Auto) 0.0 HI MEYRE DO Oct 24, 2018 08:19
[2018-10-24] MEDS: PRENATAL VITAMIN 1 EA TAB PO SCH (08:29)
[2018-10-24] MEDS: DOCUSATE SODIUM 100 MG (COLACE) CAP PO SCH ×2 (08:29→21:04)
[2018-10-24] MEDS: FERROUS SULF 325 MG (IRON) TAB PO SCH (08:29)
[2018-10-24 14:35] VITALS: BP 99/67
[2018-10-24 21:04] VITALS: BP 103/61
[2018-10-25 04:20] VITALS: BP 87/58
[2018-10-25] MEDS: IBUPROFEN 600 MG (MOTRIN) TAB PO SCH ×2 (04:20→11:11)
--- NOTE | 2018-10-25 08:12 | Postpartum Progress Note ---
Note Note Day # 2 Subjective: Patient is without complaints. Ambulating, voiding. Tolerating a regular diet without nausea or vomiting. Normal lochia. Pain is well controlled with oral pain medications. Objective: Physical Exam: General - Alert and oriented, no apparent distress Abdomen - Soft, appropriately tender to palpation, non-distended, fundus firm at umbilicus Extremities - no edema, negative Jung's bilaterally Assessment: PPD 2 NVD Acute blood loss anemia Plan: Routine care. Encourage breast feeding. Encourage ambulation. Ferrous sulfate supplementation. Plan for discharge today Vitals - Labs Vital Signs - I&O Vital Signs Date Time Temp Pulse Resp B/P (MAP) Pulse Ox O2 Delivery O2 Flow Rate FiO2 10/25/18 04:20 98.2 66 18 87/58 (68) 99 Room Air 10/24/18 21:04 97.6 77 18 103/61 (75) 98 Room Air 10/24/18 14:35 97.9 77 18 99/67 (78) Room Air Labs Microbiology 10/23/18 Urine Culture - Final, Complete 3 or more isolates HI MEYER DO Oct 25, 2018 08:12
--- NOTE | 2018-10-25 08:13 | Discharge Inst-Women's Service ---
Discharge Inst-Women's Serv Depart Medication/Instructions New, Converted or Re-Newed RX: RX on Chart Final Diagnosis PPD 2 NVD Acute blood loss anemia Problems Reviewed?: Yes Consults/Follow Up Additional Follow Up: Yes Activity Activity: Activity as Tolerated Driving Instructions: No Driving for 1 Week NO SMOKING: NO SMOKING Nothing Inside Vagina: No Douching, No [place], No Tampons Diet Discharge Diet: No Restrictions Symptoms to Report to : Bleeding Excessive, Urine Color Change, Fever Over 101 Degrees F, Vaginal Bleeding Increase, Questions/Concerns For Any Problems or Questions: Contact Your Physician Skin/Wound Care Bathing Instructions: HI Venegas DO Oct 25, 2018 08:13
--- NOTE | 2018-10-25 08:15 | NUR ---
Dr. Holloway to room to see pt. Plan for discharge to home today.
[2018-10-25] MEDS ORDERED: IBUP-844 PO (08:16)
[2018-10-25] MEDS ORDERED: FERR325T18 PO (08:16)
[2018-10-25] MEDS ORDERED: DOCU100C37 PO (08:16)
[2018-10-25] MEDS ORDERED: Benzocaine/Menthol TP (08:16)
[2018-10-25] MEDS ORDERED: OXYC1TAB87 PO (08:16)
[2018-10-25] MEDS ORDERED: DIBU30OI TOP (08:16)
[2018-10-25] MEDS: ACETAMINOPHEN 500 MG TAB (TYLENOL) PO SCH (08:59)
[2018-10-25] MEDS: PRENATAL VITAMIN 1 EA TAB PO SCH (09:00)
[2018-10-25] MEDS: DOCUSATE SODIUM 100 MG (COLACE) CAP PO SCH (09:00)
[2018-10-25] MEDS: FERROUS SULF 325 MG (IRON) TAB PO SCH (09:01)
[2018-10-25 09:02] VITALS: BP 119/67
--- NOTE | 2018-10-25 11:00 | NUR ---
TO ROOM FOR DISCHARGE INSTRUCTIONS. PT DESIRES WAITING AT THIS TIME THEY PLAN TO HAVE VISITORS SOON. ENCOURAGED PT TO CALL WHEN READY FOR DISMISSAL INSTRUCTIONS.
--- NOTE | 2018-10-25 12:40 | NUR ---
DISCHARGE INSTRUCTIONS EXPLAINED TO PT WITH COPY PROVIDED TO PT ALONG WITH SCRIPTS. PT NOTIFIED OF FOLLOW UP APPTS MADE. EXTRA MESH UNDERWEAR, PADS, FORMULA, BATH WIPES PROVIDED PER PT REQUEST. PT VERBALIZES UNDERSTANDING OF INSTRUCTIONS AND SIGNS TO VERIFY. DENIES FURTHER NEEDS OR CONCERNS AT THIS TIME.
--- NOTE | 2018-10-25 13:30 | NUR ---
PT TAKEN OFF UNIT VIA WHEELCHAIR ACCOMPANIED BY S.O., OB STAFF, AND INFANT ALONG WITH ALL PERSONAL BELONGINGS. TO PRIVATE VEHICLE. NO S/S OF DISTRESS NOTED.
== END 2018-10-25 13:30 | disposition home or self-care (01) | DRG 806 ==
LOC: WSo 07:10 → LDRP 07:10 → WSo 08:21 → LDRP 08:21
PROVIDERS: ADMIT Obstetrics & Gynecology; ATTEND Obstetrics & Gynecology
PROC: 10E0XZZ Delivery of Products of Conception, External Approach (ICD-10-PCS; principal; 2018-10-23)
PROC: 0HQ9XZZ Repair Perineum Skin, External Approach (ICD-10-PCS; 2018-10-23)
PROC: 0UQMXZZ Repair Vulva, External Approach (ICD-10-PCS; 2018-10-23)
DX: O70.0 First degree perineal laceration during delivery (principal); O71.82 Other specified trauma to perineum and vulva; O90.81 Anemia of the puerperium; D62 Acute posthemorrhagic anemia; Z37.0 Single live birth; Z3A.38 38 weeks gestation of pregnancy
CPT/HCPCS: 36415; 81000; 85025; 86850; 86900; 86901; 87088; 99212